=== PATIENT | male | born 2000 | race Caucasian/White ===

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

== ENCOUNTER 2023-03-26 16:26 | Emergency (ER) | payer OTHER, SELFPAY ==
[2023-03-26 17:00] VITALS: BP 136/87; PULSE 63; RESP 18; TEMP 37; O2SAT 98; BMI 35.8
--- NOTE | 2023-03-26 17:29 | EXP.UTC ---
Discharge Plan Disposition Patient Disposition: Home, Self-Care Condition: Good Prescriptions Prescriptions: New amoxicillin 500 mg capsule 500 mg PO TID 10 Days Qty: 30 0RF ibuprofen 600 mg tablet 600 mg PO Q6HP PRN (Reason: Moderate Pain) Qty: 20 0RF No Action ibuprofen 600 MG tablet 600 mg PO Q6HP PRN (Reason: Mild Pain) Qty: 30 0RF Referrals Follow up/Referrals: Brittany Maguire APRN [Primary Care Provider] - See instructions Activity Restrictions/Add. Instructions Additional Instructions/Restrictions: Take medication as prescribed Call and make appointment with Dentist it may take you several weeks to get in Use dental balls as instructed in the [facility] Return if needed Straight to ER if any life threatening symptoms Clinical Impressions Clinical Impression: Dental infection Instructions Patient Instructions: Tooth Abscess, DI for Tooth Abscess, Ibuprofen Discharge ED Provider: Tatyana Lowe [facility] [place] HPI General Stated complaint: dental pain Mode of Arrival: Ambulatory Source of Information: Patient Limitations: No Limitations Time Seen by Provider: 03/26/23 17:29 Description of Symptoms (Recalled from Triage Doc. by RN): PATIENT C/O TOOTH ACHE TO TOP RIGHT SIDE HEENT Symptoms (Recalled from RN notes): Yes Resp Symptoms (Recalled from RN notes): No Skin Symptoms (Recalled from RN notes): No MS Symptoms (Recalled from RN notes): No Functional Status (Recalled from RN notes): WNL History of Present Illness Provider Complaint: Patient states that he has been having tooth ache in his back tooth on the right upper gum States that he has been putting oralgel on it but not helped much and feels like it is starting to swell States that today it was hurting worse so he came in to get it checked Related Data Previous Rx's Medication Instructions Recorded ibuprofen 600 mg tablet 600 mg PO Q6HP PRN Mild Pain #30 01/21/19 tabs amoxicillin 500 mg capsule 500 mg PO TID 10 days #30 caps 03/26/23 ibuprofen 600 mg tablet 600 mg PO Q6HP PRN Moderate Pain 03/26/23 #20 tabs Allergies Allergy/AdvReac Type Severity Reaction Status Date / Time cetirizine [From Zyrtec] Allergy Verified 12/10/20 09:01 fluticasone [From Flonase] Allergy Verified 12/10/20 09:01 Worker's Comp Is this a Worker's Comp case?: No [facility] Disclaimer: The information contained in this section may have been updated after the patient was seen, as this information can be updated by other users. Social History Smoking Status: Never smoker alcohol intake: never current occupational status: other Travel in the last 8 weeks: None household members: family ROS Obtained: Yes All systems reviewed & no additional complaints except as documented and Yes Systems reviewed as appropriate & no additional complaints except as documented Constitutional Constitutional: Reports system reviewed and no additional complaints, except as documented, Reports as per HPI and Denies fever(s) ENT Ears, Nose, Mouth, and Throat: Reports system reviewed and no additional complaints, except as documented, Reports as per HPI and Reports dental pain Cardiovascular Cardiovascular: Reports system reviewed and no additional complaints, except as documented and Reports as per HPI Respiratory Respiratory: Reports system reviewed and no additional complaints, except as documented and Reports as per HPI Gastrointestinal Gastrointestingal: Reports system reviewed and no additional complaints, except as documented and as per HPI Musculoskeletal Musculoskeletal: Reports system reviewed and no additional complaints, except as documented and Reports as per HPI Physical Exam General General appearance: alert and in no apparent distress Expanded ENT Exam Teeth exam: Present dental caries, fractured tooth # and gingival swelling (redness and swelling noted to right gum area around broken back tooth) Respiratory Respiratory exam: Present normal lung
[2023-03-26 17:39] VITALS: BP 136/87; PULSE 63; RESP 18; TEMP 37; O2SAT 98
== END 2023-03-26 17:41 | disposition home or self-care (01) ==
PROVIDERS: Emergency Provider Nurse Practitioner; PCP Nurse Practitioner Family
DX: K04.7 Periapical abscess without sinus (principal)
CPT/HCPCS: 99212; 99214; G0463

== ENCOUNTER 2023-11-02 22:05 | Emergency (ER) | payer SELFPAY ==
[2023-11-02 22:10] VITALS: BP 158/84; PULSE 67; RESP 20; O2SAT 99
[2023-11-02 22:15] VITALS: BP 158/84; PULSE 86; RESP 18; TEMP 36.4; O2SAT 99; BMI 32.5
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
[2023-11-02 22:37] VITALS: BP 158/84; PULSE 86; RESP 18; TEMP 36.4; O2SAT 99
== END 2023-11-02 22:39 | disposition home or self-care (01) ==
PROVIDERS: Emergency Provider Student in an Organized Health Care Education/Training Program; PCP Nurse Practitioner Family
DX: M54.2 Cervicalgia (principal); M25.512 Pain in left shoulder; F17.290 Nicotine dependence, other tobacco product, uncomplicated; V48.5XXA Car driver injured in noncollision transport accident in traffic accident, initial encounter; Y92.410 Unspecified street and highway as the place of occurrence of the external cause
CPT/HCPCS: 99283

== ENCOUNTER 2024-08-06 10:44 | Emergency (ER) | payer SELFPAY ==
[2024-08-06 11:00] VITALS: BP 151/89; PULSE 68; RESP 19; TEMP 36.9; O2SAT 99; BMI 19.5
[2024-08-06] MEDS: TETRACAINE/BENZOCAINE/BUTAMBEN 56 GM SPRAY TP (11:13)
[2024-08-06] MEDS: LIDOCAINE 2% VISCOUS SOL 15ML UDC 15 ML PO (11:14)
--- NOTE | 2024-08-06 11:59 | ED_ITS ---
Discharge Plan Disposition Patient Disposition: Home, Self-Care Condition: Good Prescriptions Prescriptions: New amoxicillin 875 mg tablet 875 mg PO BID 10 Days Qty: 20 0RF ibuprofen 800 mg tablet 800 mg PO TID PRN (Reason: pain) Qty: 30 0RF Referrals Follow up/Referrals: Provider,Referral, MD [Primary Care Provider] - See instructions Activity Restrictions/Add. Instructions Additional Instructions/Restrictions: Take medication as prescribed. Call and make a follow up appointment with dentist. Clinical Impressions Clinical Impression: Dental infection Instructions Patient Instructions: DI for Dental Pain, DI for Tooth Decay Print Language Print Language: Macanese Discharge ED [place]itl L[place] [facility] [place] Stated complaint: toothache Mode of Arrival: Ambulatory Source of Information: Patient Limitations: No Limitations Time Seen by Provider: 08/06/24 11:55 Description of Symptoms (Recalled from Triage Doc. by RN): PATIENT C/O PAIN TO TOP RIGHT TOOTH HEENT Symptoms (Recalled from RN notes): Yes Resp Symptoms (Recalled from RN notes): No Skin Symptoms (Recalled from RN notes): No MS Symptoms (Recalled from RN notes): No Functional Status (Recalled from RN notes): WNL History of Present Illness Provider Complaint: pt reports that he has known dental issues. He states that he has a couple of broken teeth and is currently having a lot of right upper dental pain. Related Data Previous Rx's ?Medication ?Instructions ?Recorded amoxicillin 875 mg tablet 875 mg PO BID 10 days #20 tabs 08/06/24 ibuprofen 800 mg tablet 800 mg PO TID PRN pain #30 tabs 08/06/24 Allergies Allergy/AdvReac Type Severity Reaction Status Date / Time cetirizine [From Zyrtec] Allergy Verified 12/10/20 09:01 fluticasone [From Flonase] Allergy Verified 12/10/20 09:01 Worker's Comp Is this a Worker's Comp case?: No [facility] Disclaimer: The information contained in this section may have been updated after the patient was seen, as this information can be updated by other users. Medical History (Updated 08/06/24 @ 12:08 by Xochitl Lai APRN) No significant past medical history Social History Smoking Status: Current every day smoker tobacco type: smokeless tobacco alcohol intake: never current occupational status: other Travel in the last 8 weeks: None household members: family ROS Obtained: Yes All systems reviewed & no additional complaints except as documented Constitutional Constitutional: Reports system reviewed and no additional complaints, except as documented Eyes Eyes: Reports system reviewed and no additional complaints, except as documented ENT Ears, Nose, Mouth, and Throat: Reports system reviewed and no additional complaints, except as documented and Reports dental pain Cardiovascular Cardiovascular: Reports system reviewed and no additional complaints, except as documented Respiratory Respiratory: Reports system reviewed and no additional complaints, except as documented Gastrointestinal Gastrointestingal: Reports system reviewed and no additional complaints, except as documented Genitourinary Male Genitourinary: Reports system reviewed and no additional complaints, except as documented Musculoskeletal Musculoskeletal: Reports system reviewed and no additional complaints, except as documented Integumentary/Breasts Skin/Breast: Reports system reviewed and no additional complaints, except as documented Neurologic Neurologic: Reports system reviewed and no additional complaints, except as documented Endocrine Endocrine: Reports system reviewed and no additional complaints, except as documented Hematologic/Lymphatic Henatologic/Lymphatic: Reports system reviewed and no additional complaints, except as documented Allergic/Immunologic Allergic/Immunologic: Reports system reviewed and no additional complaints, except as documented Physical Exam General General appearance: alert and in no apparent distress Head Head exam: atraumatic and normocephalic Eye Eye exam: Present normal appearance and mydriasis ENT ENT exam: Present mucous membranes moist Expanded ENT Exam External ear exam: Present normal external inspection Nasal speculum exam: Bilateral: normal Mouth exam: Present normal external inspection Teeth exam: Present dental caries (4), fractured tooth # (1), dental tenderness # (4) and gingival swelling Throat exam: Present normal inspection Neck Neck exam: Present normal inspection; Absent lymphadenopathy Chest Chest inspection: Present normal inspection and symmetric chest wall rise Respiratory Respiratory exam: Present normal lung sounds bilaterally Cardiovascular Cardiovascular exam: Present regular rate and normal rhythm Abdominal Exam Abdominal exam: Present soft Extremities Exam Extremities exam: Present normal inspection Back Exam Back exam: Present normal inspection Neurological Exam Neurological exam: Present alert and oriented X3 Psychiatric Psychiatric exam: Present normal affect and normal mood Skin Skin exam: Present warm, dry and intact Lymphatic Lymphatic Findings: no adenopathy Medical Decision Making Medical Records Screening: Per USPSTF and CDC recommendations, given the prevalence of disease in our region, it is our hospital?s policy to screen for HIV and viral Hepatitis for all patients aged 18 and over and those with ongoing risk factors. Yefri Inquiry Pt receiving controlled substance: No Yefri was queried for this patient: No Vital Signs: 08/06/24 11:00 Temperature 98.5 F Temperature Source Oral Pulse Rate [Left Brachial] 68 Respiratory Rate 19 Blood Pressure [Left Arm] 151/89 H Blood Pressure Mean [Left Arm] 109 Blood Pressure Source [Left Arm] Automatic Cuff Blood Pressure Position [Left Arm] Sitting 02 Sat by Pulse Oximetry 99 Oxygen Delivery Method Room Air Orders (Tests/Meds): ED MEDICATIONS Discontinued Medications Generic Name Dose Route Start Last Admin Trade Name Freq PRN Reason Stop Dose Admin Benzocaine/Butamben/Tetracaine HCl 1 gm 08/06/24 11:11 08/06/24 11:13 Tetracaine/Benzocaine/Butamben 56 Gm Victoria TP 08/06/24 11:12 1 gm ONCE ONE Administration Lidocaine HCl 15 ml 08/06/24 11:11 08/06/24 11:14 Lidocaine 2% Viscous Irene 15ml Udc PO 08/06/24 11:12 15 ml ONCE ONE Administration
[2024-08-06 12:18] VITALS: BP 151/89; PULSE 68; RESP 19; TEMP 36.9; O2SAT 99
== END 2024-08-06 12:20 | disposition home or self-care (01) ==
PROVIDERS: Emergency Provider Nurse Practitioner Family
DX: K04.7 Periapical abscess without sinus (principal); K08.89 Other specified disorders of teeth and supporting structures; K02.9 Dental caries, unspecified
CPT/HCPCS: 99212; G0381